=== PATIENT | female | born 1955 | race Hispanic/Latino ===

== ENCOUNTER 2019-01-01 08:49 | Inpatient (IN) | payer SELFPAY ==
[2019-01-01] MEDS ORDERED: Piperacillin/Tazobactam 3.375 GM VIAL ONE (09:54)
[2019-01-01] MEDS ORDERED: Sodium Chloride 0.9% 100 ML ONE (09:55)
[2019-01-01 10:09] LABS: Hemoglobin 8.6 g/dL (12.0-16.0); Mean Corpuscular HGB CONC 30.3 g/dL (32.0-36.0); Mean Corpuscular Hemoglobin 23.8 pg (27.0-31.0); Mean Corpuscular Volume 78.5 fL (78.0-98.0); Mean Platelet Volume 7.2 fL (7.4-10.4); Platelet Count 153 thou/uL (130-400); Red Blood Cell (RBC) Count 3.63 mill/uL (4.20-5.40); White Blood Cell (WBC) Count 6.1 thou/uL (4.8-10.8)
--- NOTE | 2019-01-01 10:15 | RAD ---
Exam: Chest one view: HISTORY: Dyspnea erythema pain swelling FINDINGS: Cardiomegaly with bilateral vascular congestion and probable mild interstitial edema. Right rib defor mities evidence for old fractures. Probable small pleural effusions. IMPRESSION: Evidence for congestive heart failure with cardiomegaly, vascular congestion, mild interstitial edema , and evidence for small pleural effusions.
[2019-01-01 10:20] LABS: ALT (SGPT) 17 U/L (8-55); AST (SGOT) 28 U/L (5-34); Albumin 3.3 g/dL (3.4-4.8); Alkaline Phosphatase 94 U/L (40-150); Anion Gap 12 mmol/L (10-20); BUN (Urea Nitrogen) 8 mg/dL (9.8-20.1); Bilirubin, Total 0.8 mg/dL (0.2-1.2); Calc. Creatinine Clearance 0 mL/min (70-130); Calcium 9.2 mg/dL (7.8-10.44); Carbon Dioxide 23 mmol/L (23-31); Chloride 106 mmol/L (98-107); Estimated GFR-MDRD 77; Globulin 4.6 g/dL (2.4-3.5); Glucose 92 mg/dL (80-115); Protein, Total 7.9 g/dL (6.0-8.3); Sodium 137 mmol/L (136-145)
[2019-01-01 10:29] LABS: #Basophils 0.1 thou/uL (0.0-0.2); #Eosinphils 0.1 thou/uL (0.0-0.7); #Lymphocytes 1.2 thou/uL (1.20-3.40); #Monocytes 0.6 thou/uL (0.11-0.59); #Neutrophils 4.1 thou/uL (1.40-6.50); %Basophils 1.2 % (0.0-1.0); %Eosinophils 1.9 % (0.0-10.0); %Lymphocytes 19.6 % (21.0-51.0); %Monocytes 9.4 % (0.0-10.0); %Neutrophils 67.9 % (42.0-75.0); Anisocytosis SLIGHT = 6-15 cells (100X) (0-5/hpf); Hypochromia SLIGHT = 6-15 cells (100X) (0-5/hpf); MDiff Complete? YES; Microcytosis SLIGHT = 6-15 cells (100X) (0-5/hpf); Platelet Morphology Comment Appears Adequate
--- NOTE | 2019-01-01 10:29 | ULT ---
RIGHT LOWER EXTREMITY VENOUS DOPPLER ULTRASOUND: DATE: 01/01/2019. COMPARISON: None. HISTORY: Edema, swelling, redness, and pain, assess for DVT. TECHNIQUE: Multiplanar tijerina scale sonographic imaging of the right lower extremity venous structures obtained wi th color flow and spectral analysis. FINDINGS: Right common femoral vein, greater saphenous vein, profunda femoral vein, femoral vein, popliteal, an d posterior tibial vein are patent. Normal blood flow, augmentation, and compression within the deep venous system with no evidence for DVT of the right lower extremity. There are edematous changes in volving the soft tissues in the region of the calf. IMPRESSION: No evidence for deep venous thrombosis of the right lower extremity. POS: OFF
[2019-01-01] MEDS ORDERED: Morphine 4 MG/ML VIAL ONE (10:33)
[2019-01-01] MEDS ORDERED: Vancomycin HCl 500 MG VIAL ONE (11:29)
[2019-01-01] MEDS ORDERED: Calcium Carbonate 500 MG ChewTAB PO PRN (14:59)
[2019-01-01] MEDS ORDERED: Acetaminophen 325 MG TAB PO PRN (14:59)
[2019-01-01] MEDS ORDERED: HYDROcodone/Acetaminophen 5/325 mg Tablet PO PRN (14:59)
[2019-01-01] MEDS ORDERED: Ondansetron PF 4 MG/2 ML Vial IVP PRN (14:59)
[2019-01-01] MEDS ORDERED: Bisacodyl 5 MG TAB PO PRN (14:59)
[2019-01-01] MEDS ORDERED: Senokot S 8.6-50 MG TAB PO PRN (14:59)
[2019-01-01] MEDS ORDERED: Ondansetron ODT 4 MG TAB PO PRN (14:59)
[2019-01-01] MEDS ORDERED: diphenhydrAMINE 25 MG CAP PO PRN (15:03)
[2019-01-01] MEDS ORDERED: hydrALAZINE 20 MG/ML VIAL SLOW IVP PRN (15:03)
[2019-01-01] MEDS ORDERED: Docusate 100 MG CAP PO PRN (15:03)
--- NOTE | 2019-01-01 15:33 | PDOC.HHP ---
Hospitalist HPI - History of Present Illness Right lower extremity redness, pain, and swelling History of Present Illness: 63 year old female with PMHx of CVA presents with worsening right lower extremity redness, swelling, and pain. Patient states that roughly 2 months ago she was stung by a scorpion here in town and has worsening symptoms ever since. Patient at time of initial sting did see a doctor who recommended washing the the wound with soap and water, then applying Neosporin to it. Patient 2 months later now with worsening redness, pain, swelling and warm to the right ankle and extending up the leg. Patient denies fever, chills, chest pain, abdominal pain, Nausea, vomiting, diarrhea, or any other symptoms at this time. Patient with PMHx of CVA takes no other medications aside from occasional Ibuprofen for pain. Patient denies diabetes, HTN, HLD, and takes no medications for past CVA. In addition to LE cellulits, patient also with pulmonary edema on CXR, though she denies shortness of breath, orthopnea, or any pulmonary complaints at this time. Patient admitted to medical unit with telemetry for further evaluation. Hospitalist ROS - Review of Systems Constitutional: denies: fever, chills, sweats, weakness Eyes: denies: pain ENT: denies: ear pain, throat pain, throat swelling Respiratory: denies: cough, dry, shortness of breath, hemoptysis, SOB with excertion, pleuritic pain, sputum, wheezing Cardiovascular: denies: chest pain, palpitations, orthopnea Gastrointestinal: denies: nausea, vomitting, abdominal pain Genitourinary: denies: dysuria, frequency, incontinence Musculoskeletal: denies: neck pain, back pain Skin: reports: rash, lesions Neurological: denies: weakness, numbness, incoordination, change in speech Hospitalist History - Past Medical History Cardiac: denies: AFIB, CAD, CHF, HTN, ND, Hyperlipidemia Pulmonary: reports: CVA/TIA/stroke. 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 denies: Seizure Gastrointestinal: denies: Diverticulosis, GERD, GI bleed, Inflam bowel disease Heme/Onc: denies: Cancer Hepatobiliary: reports: Cholelithiasis. denies: Cirrhosis, Hep A/B/C Psych: denies: Psychosis, Schizophrenia Rheumatologic: denies: Rheumatoid arthritis Infectious Disease: denies: HIV Renal/: denies: Chronic renal failure Endocrine: denies: Diabetes, Hyperthyroidism, Hypothyroidism - Past Surgical History Past Surgical History: denies: CABG, Cataract Removal - Family History Family History: reports: cerebrovascular accident, hypertension - Social History Smoking Status: Unknown if ever smoked Alcohol: reports: None Drugs: reports: none Living Situation: With Family Activity level: independent ambulation - Exam General Appearance: NAD, awake alert Eye: PERRL, anicteric sclera Eye - other findings: EOMI ENT: no oropharyngeal lesions, moist mucosa Neck: supple, symmetric, no JVD Heart: RRR, no gallops, no rubs Heart - other findings: Loud systolic cresendo de cresendo murmur appreciated Respiratory: CTAB, no wheezes, no ronchi, rales (Faint) Gastrointestinal: soft, non-tender, non-distended, normal bowel sounds, no palpable masses, no guarding, no rigidity Gastrointestinal - other findings: Obese Extremeties - other findings: Right LE +2 edema with cellulitis Skin: negative: no lesions (Cellulitis right leg from toes extending up the leg to the level of the knee. There is an effusion over the lateral malleolus distally extending into the foot. See wound care pictures for details.), no rashes Skin - other findings: Right leg cullulitis with small sub centemeter round crusted lesion Neurological: CN's grossly intact, normal sensation to touch, no focal deficits , no new deficit Musculoskeletal: normal strength, no muscle wasting Psychiatric: normal affect, A&O x 3 Hospitalist Results - Labs Result Diagrams: 01/01/19 09:45 01/01/19 09:45 Lab results: WBC 6.1 thou/uL (4.8-10.8) 01/01/19 09:45 Hgb 8.6 g/dL (12.0-16.0) L 01/01/19 09:45 Hct 28.5 % (36.0-47.0) L 01/01/19 09:45 MCV 78.5 fL (78.0-98.0) 01/01/19 09:45 Plt Count 153 thou/uL (130-400) 01/01/19 09:45 Neutrophils % 67.9 % (42.0-75.0) 01/01/19 09:45 Sodium 137 mmol/L (136-145) 01/01/19 09:45 Potassium 4.0 mmol/L (3.5-5.1) 01/01/19 09:45 Chloride 106 mmol/L (98-107) 01/01/19 09:45 Carbon Dioxide 23 mmol/L (23-31) 01/01/19 09:45 BUN 8 mg/dL (9.8-20.1) L 01/01/19 09:45 Creatinine 0.76 mg/dL (0.6-1.1) 01/01/19 09:45 Glucose 92 mg/dL (80-115) 01/01/19 09:45 Lactic Acid 1.2 mmol/L (0.5-2.2) 01/01/19 09:45 Calcium 9.2 mg/dL (7.8-10.44) 01/01/19 09:45 Total Bilirubin 0.8 mg/dL (0.2-1.2) 01/01/19 09:45 AST 28 U/L (5-34) 01/01/19 09:45 ALT 17 U/L (8-55) 01/01/19 09:45 Alkaline Phosphatase 94 U/L (40-150) 01/01/19 09:45 Creatine Kinase 469 U/L (29-168) H 01/01/19 09:45 Troponin I 0.020 ng/mL (< 0.028) 01/01/19 09:45 Serum Total Protein 7.9 g/dL (6.0-8.3) 01/01/19 09:45 Albumin 3.3 g/dL (3.4-4.8) L 01/01/19 09:45 - Radiology Interpretation US - venous Status: image reviewed by me Chest x-ray Status: image reviewed by tx Hospitalist H&P A/P - Problem (1) Cellulitis and abscess of foot Code(s): L03.119 - CELLULITIS OF UNSPECIFIED PART OF LIMB; L02.619 - CUTANEOUS ABSCESS OF UNSPECIFIED FOOT Status: Acute (2) Leg pain Status: Acute (3) Leg edema, right Code(s): R60.0 - LOCALIZED EDEMA Status: Acute (4) Fever Code(s): R50.9 - FEVER, UNSPECIFIED Status: Acute (5) Scorpion sting Code(s): T63.2X1A - TOXIC EFFECT OF VENOM OF SCORPION, ACCIDENTAL, INIT Status : Acute (6) Pulmonary edema Code(s): J81.1 - CHRONIC PULMONARY EDEMA Status: Acute (7) Pulmonary edema with congestive heart failure Code(s): I50.1 - LEFT VENTRICULAR FAILURE, UNSPECIFIED Status: Acute (8) CVA (cerebral vascular accident) Code(s): I63.9 - CEREBRAL INFARCTION, UNSPECIFIED Status: Resolved - Plan Plan: Plan: Admit to medical unit with telemetry Broad spectrum antibiotics Wound culture Blood culture De escalate to culture and sensitivity as able Wound care consult, eval and treat Consider ID consult if doesnt respond to broad spectrum ABX US LE neg for DVT and no suspicion for necrotizing fasciitis CT right LE to eval for drainable abscess/ obvious osteo CXR with pulmonary edema, loud audible systolic murmur Echocardiogram to quatify EF and evaluate for valvular pathology Will add Lasix IV 20mg Breathing well on room air, adequate O2 sat Consider cardiology consult/ cardiomyopathy regimen pending Echo Pain control Screening labs for DM, HLD, throid as patient doesnt regularly see a doctor GI and DVT PPX
[2019-01-01] MEDS: HYDROcodone/Acetaminophen 7.5/325 mg Tablet PO PRN (17:41)
[2019-01-01] MEDS: Piperacillin/Tazobactam 3.375 GM in Sodium Chloride 0.9% 100 ML IVPB SCH ×2 (17:41→23:24)
--- NOTE | 2019-01-01 17:55 | CT ---
CT RIGHT LOWER EXTREMITY WITHOUT IV CONTRAST: Date: 01/01/19 HISTORY: Right ankle cellulitis and swelling. FINDINGS: There is edema and inflammatory change in the subcutaneous fat of the right lower extremity. No defin ite loculated fluid collection is seen to suggest abscess formation. No cortical destruction or perio steal reaction is noted to suggest osteomyelitis. IMPRESSION: Right lower extremity cellulitis. POS: [facility]
[2019-01-01] MEDS: Famotidine 20 MG TAB PO SCH (20:09)
[2019-01-01] MEDS ORDERED: Vancomycin HCl 1 GM in Premix Bag 1 BAG IVPB SCH (21:00)
[2019-01-01] MEDS: Vancomycin HCl 1.5 GM in Sodium Chloride 0.9% 250 ML 300 ML IVPB SCH (23:24)
[2019-01-02 05:09] LABS: #Eosinphils 0.2 thou/uL (0.0-0.7); #Lymphocytes 1.2 thou/uL (1.20-3.40); #Monocytes 0.5 thou/uL (0.11-0.59); #Neutrophils 2.3 thou/uL (1.40-6.50); %Basophils 0.8 % (0.0-1.0); %Lymphocytes 28.4 % (21.0-51.0); %Monocytes 10.9 % (0.0-10.0); %Neutrophils 55.9 % (42.0-75.0); Mean Corpuscular HGB CONC 30.8 g/dL (32.0-36.0); Mean Corpuscular Hemoglobin 24.6 pg (27.0-31.0); Mean Corpuscular Volume 79.9 fL (78.0-98.0); Mean Platelet Volume 9.1 fL (7.4-10.4); Platelet Count 140 thou/uL (130-400); RBC Distribution Width 18.1 % (11.5-14.5); Red Blood Cell (RBC) Count 3.26 mill/uL (4.20-5.40); White Blood Cell (WBC) Count 4.1 thou/uL (4.8-10.8)
[2019-01-02] MEDS: Piperacillin/Tazobactam 3.375 GM in Sodium Chloride 0.9% 100 ML IVPB SCH ×4 (05:09→23:02)
[2019-01-02 05:12] LABS: Hemoglobin A1c 5.3 % (4.0-6.0)
[2019-01-02 05:31] LABS: Anion Gap 9 mmol/L (10-20); BUN (Urea Nitrogen) 11 mg/dL (9.8-20.1); Calc. Creatinine Clearance 103 mL/min (70-130); Calcium 8.4 mg/dL (7.8-10.44); Carbon Dioxide 23 mmol/L (23-31); Cardiac Risk 3.5 (Less than 4.5); Chloride 107 mmol/L (98-107); Cholesterol 76 mg/dl (< 200 Desired); Estimated GFR-MDRD 71; Glucose 83 mg/dL (80-115); HDL Cholesterol 22 mg/dL (>60 Neg Risk); LDL Cholesterol, Calculated 43 mg/dL; Sodium 135 mmol/L (136-145); Triglycerides 55 mg/dL (Less than 150)
[2019-01-02 05:43] LABS: Free T4 (Free Thyroxine) 1.04 ng/dL (0.70-1.48); Thyroid Stimulating Hormone 5.1035 uIU/mL (0.35-4.94)
[2019-01-02] MEDS: Furosemide 20 MG/2 ML VIAL SLOW IVP SCH (09:07)
[2019-01-02] MEDS: Famotidine 20 MG TAB PO SCH ×2 (09:07→19:44)
[2019-01-02] MEDS: Enoxaparin Sodium 40 MG/0.4 ML SYRINGE SC SCH (09:08)
[2019-01-02] MEDS: HYDROcodone/Acetaminophen 7.5/325 mg Tablet PO PRN (09:13)
[2019-01-02] MEDS: Vancomycin HCl 1.5 GM in Sodium Chloride 0.9% 250 ML 300 ML IVPB SCH ×2 (11:55→23:03)
[2019-01-02 12:41] VITALS: BMI 40.9
--- NOTE | 2019-01-02 13:30 | PDOC.HOSPP ---
- Subjective Subjective: Seen and examined. Cellulitis LE is significantly improved. Pain is less severe. Breathing better, still with some cough of whitish phlegm. No fever. Overall feeling better. No acute overnight events. - Objective Vital Signs & Weight: Vital Signs (12 hours) Temp Pulse Resp BP Pulse Ox 01/02/19 11:20 97.6 F 87 18 106/56 L 96 01/02/19 07:44 97 01/02/19 07:34 98.0 F 76 16 168/81 H 97 01/02/19 04:00 98.2 F 84 20 93/55 L 94 L Weight Admit Weight 201 lb 1.6 oz Weight 202 lb 12.8 oz I&O: 01/01/19 01/02/19 01/03/19 06:59 06:59 06:59 Intake Total 860 Output Total 800 Balance 60 Result Diagrams: 01/02/19 04:47 01/02/19 04:47 Radiology Reviewed by me: Yes (CT ankle) Hospitalist ROS - Review of Systems All other systems reviewed; all pertinent +/- noted in HPI/Subj - Medication Medications: Active Medications Generic Name Dose Route Start Last Admin Trade Name Freq PRN Reason Stop Dose Admin Hydrocodone Bitart/Acetaminophen 1 tab 01/01/19 14:59 01/02/19 09:13 [place] 7.5/325 PO 1 tab Q4H PRN Administration Severe Pain (7-10) Enoxaparin Sodium 40 mg 01/02/19 09:00 01/02/19 09:08 Lovenox SC 40 mg 0900 GREG Administration Famotidine 20 mg 01/01/19 21:00 01/02/19 09:07 Pepcid PO 20 mg BID GREG Administration Furosemide 20 mg 01/02/19 09:00 01/02/19 09:07 Lasix SLOW IVP 20 mg DAILY GREG Administration Piperacillin Sod/Tazobactam 100 mls @ 200 mls/hr 01/01/19 18:00 01/02/19 11: 20 Sod 3.375 gm/ Sodium Chloride IVPB 100 mls Q6HR GREG Administration Vancomycin HCl 1.5 gm/ Sodium 300 mls @ 200 mls/hr 01/01/19 23:59 01/02/19 11 :55 Chloride IVPB 300 mls 1200,2359 GREG Administration - Exam General Appearance: NAD, awake alert Eye: PERRL, anicteric sclera Eye - other findings: EOMI ENT: normocephalic atraumatic, no oropharyngeal lesions, moist mucosa Neck: supple, symmetric, no lymphadenopathy Heart: RRR, no gallops, no rubs Heart - other findings: Murmur is less evident right upper sternal border Gastrointestinal: soft, non-tender, non-distended, normal bowel sounds, no palpable masses, no guarding, no rigidity Extremities: 2+ LE edema Extremeties - other findings: Improved LE edema and cellulitis, though still with some redness and warmth Skin: negative: no lesions, no rashes Skin - other findings: Small roughly 1 cm suppercicial scabbed lesion on right leg, lateral mal Neurological: CN's grossly intact, normal sensation to touch, no weakness, no focal deficits Musculoskeletal: normal strength Psychiatric: normal affect, A&O x 3 Hosp A/P (1) Cellulitis and abscess of foot Code(s): L03.119 - CELLULITIS OF UNSPECIFIED PART OF LIMB; L02.619 - CUTANEOUS ABSCESS OF UNSPECIFIED FOOT Status: Acute (2) Leg pain Status: Acute (3) Leg edema, right Code(s): R60.0 - LOCALIZED EDEMA Status: Acute (4) Fever Code(s): R50.9 - FEVER, UNSPECIFIED Status: Acute (5) Scorpion sting Code(s): T63.2X1A - TOXIC EFFECT OF VENOM OF SCORPION, ACCIDENTAL, INIT Status : Acute (6) Pulmonary edema Code(s): J81.1 - CHRONIC PULMONARY EDEMA Status: Acute (7) Pulmonary edema with congestive heart failure Code(s): I50.1 - LEFT VENTRICULAR FAILURE, UNSPECIFIED Status: Acute (8) CVA (cerebral vascular accident) Code(s): I63.9 - CEREBRAL INFARCTION, UNSPECIFIED Status: Resolved - Plan Plan: Med/ tel Responding to broad spectrum ABX Wound Cx, s. aureus - sensitivity pending Blood Cx - No growth to date Urine Cx - No growth to date Wound care consult, recommendations appreciated US LE neg for DVT/ necrotizing fasciitis CT Ankle negative for drainable abscess or osteomyelitis CXR with pulm edema, breathing better on room air PRN medications for cough Echo pending IV Lasix Consider cardiology consult/ cardiomyopathy regimen pending echo Pain control Lipid panel not significantly abnormal, though with prior CVA should be on statin for prevention A1c normal at 5.3 Thyroid normal GI and DVT PPX
[2019-01-03 00:13] LABS: Vancomycin, Trough 22.7 ug/mL
[2019-01-03] MEDS: Piperacillin/Tazobactam 3.375 GM in Sodium Chloride 0.9% 100 ML IVPB SCH ×2 (05:04→12:32)
[2019-01-03 05:47] LABS: #Eosinphils 0.2 thou/uL (0.0-0.7); #Lymphocytes 1.4 thou/uL (1.20-3.40); #Monocytes 0.6 thou/uL (0.11-0.59); #Neutrophils 2.8 thou/uL (1.40-6.50); %Basophils 0.9 % (0.0-1.0); %Eosinophils 4.7 % (0.0-10.0); %Lymphocytes 28.2 % (21.0-51.0); %Monocytes 12.3 % (0.0-10.0); Hemoglobin 7.9 g/dL (12.0-16.0); Mean Corpuscular HGB CONC 30.7 g/dL (32.0-36.0); Mean Corpuscular Hemoglobin 24.3 pg (27.0-31.0); Mean Corpuscular Volume 79.3 fL (78.0-98.0); Mean Platelet Volume 8.7 fL (7.4-10.4); Platelet Count 154 thou/uL (130-400); RBC Distribution Width 18.3 % (11.5-14.5); Red Blood Cell (RBC) Count 3.26 mill/uL (4.20-5.40); White Blood Cell (WBC) Count 5.1 thou/uL (4.8-10.8)
[2019-01-03 06:11] LABS: Anion Gap 10 mmol/L (10-20); BUN (Urea Nitrogen) 12 mg/dL (9.8-20.1); Calc. Creatinine Clearance 100 mL/min (70-130); Calcium 8.2 mg/dL (7.8-10.44); Carbon Dioxide 23 mmol/L (23-31); Chloride 105 mmol/L (98-107); Estimated GFR-MDRD 69; Glucose 89 mg/dL (80-115); Potassium 3.8 mmol/L (3.5-5.1); Sodium 134 mmol/L (136-145)
--- NOTE | 2019-01-03 09:42 | RAD ---
EXAM: Chest 2 views: HISTORY: Shortness of breath COMPARISON: 01/01/2019 FINDINGS: There is an enlarged but stable cardiomediastinal silhouette. There is no evidence of consolidation, mass, or pleural effusion. The bones are unremarkable. IMPRESSION: Cardiomegaly without evidence of acute cardiopulmonary disease
[2019-01-03] MEDS: Enoxaparin Sodium 40 MG/0.4 ML SYRINGE SC SCH (09:50)
[2019-01-03] MEDS: Furosemide 20 MG/2 ML VIAL SLOW IVP SCH (09:50)
[2019-01-03] MEDS: Famotidine 20 MG TAB PO SCH ×2 (09:50→21:37)
[2019-01-03 11:31] LABS: Vancomycin, Trough 25.7 ug/mL
[2019-01-03] MEDS ORDERED: Vancomycin HCl 1 GM in Premix Bag 1 BAG IVPB SCH (12:00)
[2019-01-03] MEDS: HYDROcodone/Acetaminophen 7.5/325 mg Tablet PO PRN (15:57)
[2019-01-03] MEDS: Metoprolol Tartrate 25 MG TAB PO SCH (21:37)
[2019-01-03] MEDS: Doxycycline 100 MG CAP PO SCH (21:37)
--- NOTE | 2019-01-04 05:25 | DIS ---
DATE OF ADMISSION: 01/01/2019 DATE OF DISCHARGE: 01/03/2019 REASON FOR HOSPITALIZATION: Right lower extremity redness, pain, and swelling. SIGNIFICANT FINDINGS: The patient was found to have right lower extremity cellulitis status post scorpion sting two months ago. The patient found to have community acquired MRSA growing in the wound. The patient also found to have pulmonary edema, echocardiogram confirmed that the patient having acute diastolic congestive heart failure exacerbation. PROCEDURES PERFORMED/TREATMENTS RENDERED: The patient with acute cellulitis was placed on broad-spectrum IV antibiotics. The patient had a wound culture, which confirmed the presence of methicillin-resistant Staphylococcus aureus, however, it is sensitive to oral medications consistent with community-acquired MRSA. The patient was safely transitioned to oral antibiotics as she has a normal WBC count, afebrile, and cellulitis is resolving. The patient had a CT scan of the right lower extremity, please see full report for details. There is no drainable abscess or osteomyelitis of the ankle. The patient had an echocardiogram, please see full report for details, patient found to have acute diastolic heart failure and was placed on initially IV Lasix therapy and transitioned to oral medications. CONDITION ON DISCHARGE: Stable. SPECIFIC INSTRUCTIONS FOR THE PATIENT/FAMILY: 1. The patient is recommended to take all medications as directed, to be re-evaluated by primary care physician in the outpatient clinic in the next 5 to 7 days. 2. The patient is recommended to follow up with primary care physician in the next 5 to 7 days. 3. The patient is recommended to follow up with Cardiology in the outpatient clinic in the next 2 to 4 weeks. 4. The patient is recommended to return to acute care hospital immediately if signs or symptoms return, worsen, or any other new symptoms occur. HOSPITAL COURSE: Ms. Chowdary is a very pleasant 63-year-old female with no known past medical history, who presents to [facility] on 01/01/2019, with right lower extremity redness, pain, and swelling. The patient was diagnosed to have cellulitis of the right lower extremity. Per history, the patient was bit by a scorpion two months ago and the area has not completely healed since then. The patient had a CT scan of the right lower extremity, please see full report for details. There was no drainable abscess or osteomyelitis seen on CT scan. The patient initially placed on IV antibiotics and wound culture was obtained. Wound culture did confirm the presence of community-acquired methicillin-resistant Staphylococcus aureus that is sensitive to oral antibiotics. The patient was safely transitioned to oral antibiotics as her WBC count is normal and she is afebrile. The patient's cellulitis resolving. The patient with mild shortness of breath on admission and chest x-ray suggestive of pulmonary congestion. Concerns for congestive heart failure were addressed and the patient had an echocardiogram. The patient with preserved ejection fraction of 60% and normal wall motion. The patient does have evidence of diastolic dysfunction and she was diagnosed with acute diastolic heart failure with exacerbation. The patient was placed on a heart failure regimen and recommended to avoid volume overload and excess salt intake. The patient recommended safe for discharge home with close followup in the outpatient setting. The patient is recommended to take all medications, efforts were made to send the patient's medications to a pharmacy in which she could be provided medications at low/no cost. transition manager consultation was requested to ensure compliance of the patient with medical regimen and follow up with primary care physician. The patient is recommended to follow up with primary care physician in the next 5 to 7 days. The patient is recommended to follow up with Cardiology in the next 2 to 4 weeks. The patient is recommended to return to acute care hospital immediately if signs or symptoms return, worsen, or any other new symptoms occur. Greater than 39 minutes spent coordinating care and discharge planning. Job ID: [id number] [id number]
[2019-01-04 08:52] VITALS: BP 129/69; TEMP 98.1
[2019-01-04] MEDS: Doxycycline 100 MG CAP PO SCH (08:53)
[2019-01-04] MEDS: Famotidine 20 MG TAB PO SCH (08:54)
[2019-01-04] MEDS: Metoprolol Tartrate 25 MG TAB PO SCH (08:54)
[2019-01-04] MEDS: Enoxaparin Sodium 40 MG/0.4 ML SYRINGE SC SCH (08:55)
[2019-01-04] MEDS ORDERED: Furosemide 20 MG TAB PO SCH (09:00)
[2019-01-04] MEDS ORDERED: Lisinopril 2.5 MG TAB PO SCH (09:00)
== END 2019-01-04 11:59 | disposition home or self-care (01) | DRG 602 ==
LOC: SCSER 08:49 → SCSERHOLD 11:51 → 2NO 14:47
PROVIDERS: ADMIT Internal Medicine; ATTEND Internal Medicine
DX: L03.115 Cellulitis of right lower limb (principal); I50.33 Acute on chronic diastolic (congestive) heart failure; L02.611 Cutaneous abscess of right foot; B95.62 Methicillin resistant Staphylococcus aureus infection as the cause of diseases classified elsewhere; D64.9 Anemia, unspecified; Z86.73 Personal history of transient ischemic attack (TIA), and cerebral infarction without residual deficits
CPT/HCPCS: 36415; 71045; 71046; 80048; 80053; 80061; 80202; 82550; 83036; 83605; 84439; 84443; 84481; 84484; 85025; 86140; 87040; 87070; 87077; 87086; 87186; 87205; 90471; 90732; 93005; 93306; 93798; 96365; 96366; 96367; 96375; G0009; J1650; J1940; J2270; J2543; J3370; J3490; J7050

== ENCOUNTER 2020-05-11 05:18 | Inpatient (IN) | payer SELFPAY ==
[2020-05-11] MEDS ORDERED: levETIRAcetam in NS 100 ML ONE (05:21)
[2020-05-11] MEDS ORDERED: fentaNYL Citrate/PF 2,000 MCG in Sodium Chloride 0.9% 60 ML IV SCH (05:45)
[2020-05-11] MEDS ORDERED: Norepinephrine 8 MG/0.9% NS 250 ML ONE (06:02)
[2020-05-11 06:42] LABS: Actual Bicarbonate (HCO3a) 19.2 mEq/L (22-28); Analyzer IN Cardio ER; Base Excess (BEa) -4.4 mEq/L (-2.0 to +3.0); Calcium, Ionized (arterial) 1.03 mmol/L (1.12-1.30); Carboxyhemoglobin (COHb) 0.2 gm% (0.0-3.0); O2 Tension (PaO2), arterial 447.2 mmHg (> 80.0); Potassium - ABG Lab 3.18 mmol/L (3.70-5.30); pH, Arterial 7.43 (7.35-7.45)
[2020-05-11 06:43] LABS: Puncture Site LRA
[2020-05-11] MEDS ORDERED: EPINEPHrine 1 MG/10 ML Abboject SYRINGE ONE ×3 (06:43→13:10)
[2020-05-11 06:51] LABS: ALT (SGPT) 28 U/L (8-55); AST (SGOT) 127 U/L (5-34); Albumin 1.5 g/dL (3.4-4.8); Alkaline Phosphatase 54 U/L (40-110); Anion Gap 15 mmol/L (10-20); BUN (Urea Nitrogen) 29 mg/dL (9.8-20.1); Bilirubin, Total 3.9 mg/dL (0.2-1.2); Calc. Creatinine Clearance 0 mL/min (70-130); Calcium 7.3 mg/dL (7.8-10.44); Carbon Dioxide 23 mmol/L (23-31); Chloride 101 mmol/L (98-107); Globulin 3.6 g/dL (2.4-3.5); Glucose 256 mg/dL (80-115); Potassium 4.4 mmol/L (3.5-5.1); Protein, Total 5.1 g/dL (6.0-8.3); Sodium 135 mmol/L (136-145)
[2020-05-11 06:58] LABS: Band 21 % (5-11); Hemoglobin 9.4 g/dL (12.0-16.0); Lymphocytes 14 % (21-51); MDiff Complete? YES; Macrocytosis SLIGHT = 6-15 cells (100X) (0-5/hpf); Mean Corpuscular HGB CONC 31.2 g/dL (32.0-36.0); Mean Corpuscular Hemoglobin 32.9 pg (27.0-31.0); Metamyelocyte 1 % (0-0); Monocytes 17 % (0-10); Neutrophil 47 % (42-75); Platelet Count 36 thou/uL (130-400); Platelet Morphology Comment Appears Decreased; RBC Distribution Width 21.5 % (11.5-14.5); Red Blood Cell (RBC) Count 2.85 mill/uL (4.20-5.40); Target Cells MODERATE= 6-15 cells (100X) (0-1/hpf); White Blood Cell (WBC) Count 8.7 thou/uL (4.8-10.8)
[2020-05-11] MEDS ORDERED: Aspirin 300 MG Suppository ONE (06:59)
[2020-05-11] MEDS ORDERED: EPINEPHrine 4 MG in Dextrose 5% in Water 250 ML IV SCH (07:00)
[2020-05-11 07:23] LABS: CKMB 9.2 ng/mL (0-6.6)
[2020-05-11] MEDS ORDERED: Vancomycin 1 GM/200 ML BAG ONE (07:25)
[2020-05-11] MEDS ORDERED: Cefepime 2 GM VIAL ONE (07:25)
[2020-05-11 07:33] LABS: Bacteria/HPF 4+ HPF (None Seen); Bilirubin 1+ (Negative); Blood, Urine 2+ (Negative); Clarity Extra Turbid (Clear); Glucose, Urine (Dipstick) 100 mg/dL (Negative); Ketone, Urine Negative (Negative); Leukocyte 250 Leu/uL (Negative); Nitrite 1+ (Negative); Protein, Urine (Dipstick) 200 mg/dL (Neg-Trace); Specific Gravity, Urine 1.017 (1.002-1.036); Squamous Epithelial 21-50 HPF (0-3); Urobilinogen Normal mg/dL (Less than 2); WBC/HPF 21-50 HPF (0-3)
[2020-05-11 07:58] LABS: SARS-CoV-2 NAA Rapid Test Not Detected (NotDetected)
[2020-05-11] MEDS ORDERED: Acetaminophen 650 MG Suppository PR PRN (09:14)
[2020-05-11 09:16] VITALS: BMI 43.7
[2020-05-11] MEDS ORDERED: Dextrose 5% in Water 1,000 ML IV PRN (09:17)
[2020-05-11] MEDS ORDERED: Insulin Regular 300 UNITS/3 ML VIAL SC PRN (09:17)
[2020-05-11] MEDS ORDERED: Dextrose 50% Abboject 50 ML SYRINGE SLOW IVP PRN (09:17)
[2020-05-11] MEDS ORDERED: Vancomycin HCl 1 GM in Sodium Chloride 0.9% 250 ML 250 ML IVPB SCH (09:30)
[2020-05-11] MEDS ORDERED: Vancomycin 1 GM in Premix Bag 1 BAG IVPB SCH (09:45)
[2020-05-11 10:12] LABS: Hemoglobin A1c 4.6 % (4.0-6.0)
[2020-05-11 10:20] LABS: Cholesterol 49 mg/dl (< 200 Desired); HDL Cholesterol Less than 8 mg/dL (>60 Neg Risk); Triglycerides 89 mg/dL (Less than 150)
[2020-05-11 11:00] LABS: CKMB 9.7 ng/mL (0-6.6)
[2020-05-11] MEDS ORDERED: FLU VACC QS2020-21(6MOS UP)/PF 60 MCG/0.5 ML SYRINGE IM ONE (11:00)
[2020-05-11] MEDS ORDERED: Piperacillin/Tazobactam 3.375 GM VIAL ONE (11:01)
[2020-05-11] MEDS: Piperacillin/Tazobactam 3.375 GM in Sodium Chloride 0.9% 100 ML IVPB SCH ×2 (11:10→21:03)
[2020-05-11 11:11] LABS: Lactic Acid 3.5 mmol/L (0.5-2.2)
[2020-05-11] MEDS ORDERED: Sodium Bicarb 50 MEQ/50 ML Abboject 8.4% SYRINGE ONE (13:10)
[2020-05-11] MEDS ORDERED: Dextrose 50% Abboject 50 ML SYRINGE ONE (13:10)
[2020-05-11] MEDS ORDERED: Lorazepam 2 MG/ML VIAL SLOW IVP PRN (13:38)
[2020-05-11] MEDS: Multivitamins, Adult 10 ML, Thiamine HCl 100 MG, Folic Acid 1 MG in Dextrose 5 %-0.45 %... IV SCH (14:00)
[2020-05-11] MEDS ORDERED: Norepinephrine 4 MG/4 ML VIAL ONE (14:39)
[2020-05-11 15:04] LABS: Vitamin D, 25 Hydroxy 13.3 ng/ml (> 30.0)
[2020-05-11 15:10] LABS: Free T4 (Free Thyroxine) 0.79 ng/dL (0.70-1.48)
[2020-05-11] MEDS ORDERED: Norepinephrine 8 MG in Dextrose 5% in Water 242 ML IVPB PRN (17:15)
[2020-05-11 17:25] LABS: CKMB 8.6 ng/mL (0-6.6); Critical Call CKMB RESULT DECREASING
[2020-05-11] MEDS: Pantoprazole 40 MG VIAL IVP SCH (20:21)
[2020-05-11] MEDS ORDERED: Famotidine/PF 20 mg/2ml Vial SLOW IVP SCH (21:00)
[2020-05-12] MEDS ORDERED: Albumin 25% 25 GM/100 ML BOT IVPB SCH (02:00)
[2020-05-12 02:31] LABS: INR-International Normal Ratio 2.6; PTT 48.1 sec (22.9-36.1)
[2020-05-12 02:36] LABS: Lactic Acid 2.6 mmol/L (0.5-2.2)
[2020-05-12 02:46] LABS: SARS-CoV-2 MS2 Positive; SARS-CoV-2 N Gene Negative; SARS-CoV-2 S Gene Negative; SARS-CoV-2 by NAA Not Detected (NotDetected); SARS-CoV-2 orf1ab Negative
[2020-05-12 03:00] LABS: ALT (SGPT) 35 U/L (8-55); AST (SGOT) 160 U/L (5-34); Albumin 1.6 g/dL (3.4-4.8); Alkaline Phosphatase 66 U/L (40-110); Anion Gap 12 mmol/L (10-20); BUN (Urea Nitrogen) 40 mg/dL (9.8-20.1); Bilirubin, Total 7.5 mg/dL (0.2-1.2); Calc. Creatinine Clearance 37 mL/min (70-130); Calcium 7.1 mg/dL (7.8-10.44); Carbon Dioxide 22 mmol/L (23-31); Chloride 104 mmol/L (98-107); Glucose 151 mg/dL (80-115); Potassium 3.6 mmol/L (3.5-5.1); Protein, Total 5.6 g/dL (6.0-8.3); Sodium 134 mmol/L (136-145)
[2020-05-12] MEDS: Sodium Chloride 0.9% 1,000 ML IV SCH ×2 (05:28→18:31)
[2020-05-12] MEDS: Levothyroxine Sodium 50 MCG TAB PO SCH (05:28)
[2020-05-12] MEDS: Norepinephrine 8 MG/0.9% NS 8 MG in Premix Bag 1 BAG IVPB PRN ×4 (06:26→23:05)
[2020-05-12 07:29] LABS: Hemoglobin 9.1 g/dL (12.0-16.0); Mean Corpuscular HGB CONC 31.1 g/dL (32.0-36.0); Mean Corpuscular Hemoglobin 31.9 pg (27.0-31.0); Red Blood Cell (RBC) Count 2.86 mill/uL (4.20-5.40); White Blood Cell (WBC) Count 18.2 thou/uL (4.8-10.8)
[2020-05-12 07:31] LABS: Mean Platelet Volume 13.3 fL (7.4-10.4); Platelet Count 42 thou/uL (130-400)
[2020-05-12 08:22] LABS: Band 44 % (5-11); Dohle Bodies SLIGHT; Lymphocytes 4 % (21-51); MDiff Complete? YES; Metamyelocyte 1 % (0-0); Monocytes 13 % (0-10); Neutrophil 38 % (42-75); Platelet Morphology Comment Appears Decreased; Polychromasia SLIGHT = 2-3 cells (100X) (0-2/hpf); Reflex for Review?? NO; Target Cells SLIGHT = 2-5 cells (100X) (0-1/hpf); Toxic Granulation MODERATE; Vacuoles MODERATE
[2020-05-12] MEDS ORDERED: Enoxaparin Sodium 40 MG/0.4 ML SYRINGE SC SCH (09:00)
[2020-05-12] MEDS: Pantoprazole 40 MG VIAL IVP SCH ×2 (10:15→20:12)
[2020-05-12] MEDS: Piperacillin/Tazobactam 3.375 GM in Sodium Chloride 0.9% 100 ML IVPB SCH ×2 (10:16→21:59)
[2020-05-12] MEDS: Acetaminophen 325 MG TAB PO PRN (10:28)
[2020-05-12] MEDS: Multivitamins, Adult 10 ML, Thiamine HCl 100 MG, Folic Acid 1 MG in Dextrose 5 %-0.45 %... IV SCH (14:16)
[2020-05-13] MEDS: Propofol 1,000 MG/100 ML VIAL IV PRN ×2 (02:09→16:02)
[2020-05-13] MEDS ORDERED: Morphine 2 MG/ML VIAL SLOW IVP PRN (02:15)
[2020-05-13] MEDS ORDERED: Fentanyl BOLUS 250 ML IVPB PRN (02:15)
[2020-05-13] MEDS ORDERED: Lorazepam 2 MG/ML VIAL SLOW IVP PRN (02:15)
[2020-05-13] MEDS ORDERED: DISCONTINUE PREVIOUS NARCOTIC PAIN MEDICATIONS AND BENZODIAZEPINES FS SCH (02:15)
[2020-05-13] MEDS ORDERED: Propofol BOLUS 1,000 MG/100 ML VIAL IV PRN (02:15)
[2020-05-13] MEDS ORDERED: Fentanyl CADD 100 ML IV SCH (02:15)
[2020-05-13] MEDS: Levothyroxine Sodium 50 MCG TAB PO SCH (05:13)
[2020-05-13] MEDS: Norepinephrine 8 MG/0.9% NS 8 MG in Premix Bag 1 BAG IVPB PRN ×2 (05:13→14:24)
[2020-05-13 05:18] LABS: ALT (SGPT) 34 U/L (8-55); AST (SGOT) 156 U/L (5-34); Albumin 1.8 g/dL (3.4-4.8); Alkaline Phosphatase 100 U/L (40-110); Anion Gap 9 mmol/L (10-20); BUN (Urea Nitrogen) 40 mg/dL (9.8-20.1); Bilirubin, Total 10.8 mg/dL (0.2-1.2); Calc. Creatinine Clearance 43 mL/min (70-130); Calcium 6.9 mg/dL (7.8-10.44); Carbon Dioxide 22 mmol/L (23-31); Chloride 108 mmol/L (98-107); Globulin 3.8 g/dL (2.4-3.5); Glucose 130 mg/dL (80-115); Potassium 3.2 mmol/L (3.5-5.1); Protein, Total 5.6 g/dL (6.0-8.3); Sodium 136 mmol/L (136-145)
[2020-05-13 05:22] LABS: Band 16 % (5-11); Hemoglobin 7.7 g/dL (12.0-16.0); Hypochromia SLIGHT = 6-15 cells (100X) (0-5/hpf); Lymphocytes 10 % (21-51); MDiff Complete? YES; Macrocytosis SLIGHT = 6-15 cells (100X) (0-5/hpf); Mean Corpuscular Hemoglobin 32.5 pg (27.0-31.0); Mean Platelet Volume 12.4 fL (7.4-10.4); Monocytes 12 % (0-10); Neutrophil 62 % (42-75); Platelet Count 47 thou/uL (130-400); Platelet Morphology Comment Appears Decreased; RBC Distribution Width 22.1 % (11.5-14.5); Red Blood Cell (RBC) Count 2.38 mill/uL (4.20-5.40)
[2020-05-13] MEDS ORDERED: Electrolyte Replacement Protocol 1 EACH FS PRN (08:22)
[2020-05-13] MEDS: Sodium Chloride 0.9% 1,000 ML IV SCH ×2 (09:53→21:21)
[2020-05-13] MEDS: Midodrine HCl 5 MG TAB PER TUBE SCH ×3 (09:54→21:11)
[2020-05-13] MEDS: Pantoprazole 40 MG VIAL IVP SCH ×2 (09:54→21:11)
[2020-05-13] MEDS: Piperacillin/Tazobactam 3.375 GM in Sodium Chloride 0.9% 100 ML IVPB SCH ×2 (09:59→21:18)
[2020-05-13] MEDS ORDERED: Potassium Chloride 40 MEQ in Sodium Chloride 0.9% 250 ML 250 ML IVPB SCH (10:00)
[2020-05-13] MEDS: Multivitamins, Adult 10 ML, Thiamine HCl 100 MG, Folic Acid 1 MG in Dextrose 5 %-0.45 %... IV SCH (14:27)
[2020-05-14] MEDS: Propofol 1,000 MG/100 ML VIAL IV PRN ×2 (02:12→23:00)
[2020-05-14] MEDS: Norepinephrine 8 MG/0.9% NS 8 MG in Premix Bag 1 BAG IVPB PRN ×2 (04:53→17:50)
[2020-05-14] MEDS: Levothyroxine Sodium 50 MCG TAB PO SCH (05:02)
[2020-05-14 05:42] LABS: ALT (SGPT) 35 U/L (8-55); AST (SGOT) 158 U/L (5-34); Albumin 1.7 g/dL (3.4-4.8); Alkaline Phosphatase 99 U/L (40-110); Anion Gap 11 mmol/L (10-20); BUN (Urea Nitrogen) 38 mg/dL (9.8-20.1); Bilirubin, Total 12.4 mg/dL (0.2-1.2); Calc. Creatinine Clearance 52 mL/min (70-130); Calcium 6.7 mg/dL (7.8-10.44); Carbon Dioxide 22 mmol/L (23-31); Chloride 110 mmol/L (98-107); Globulin 3.9 g/dL (2.4-3.5); Glucose 113 mg/dL (80-115); Potassium 3.5 mmol/L (3.5-5.1); Protein, Total 5.6 g/dL (6.0-8.3); Sodium 139 mmol/L (136-145)
[2020-05-14 09:05] LABS: Mean Corpuscular HGB CONC 32.3 g/dL (32.0-36.0); Mean Corpuscular Hemoglobin 33.1 pg (27.0-31.0); RBC Distribution Width 22.5 % (11.5-14.5); Red Blood Cell (RBC) Count 2.43 mill/uL (4.20-5.40)
[2020-05-14] MEDS ORDERED: Potassium Chloride 40 MEQ in Sodium Chloride 0.9% 250 ML 250 ML IVPB SCH (09:15)
[2020-05-14] MEDS: Piperacillin/Tazobactam 3.375 GM in Sodium Chloride 0.9% 100 ML IVPB SCH ×2 (09:31→21:00)
[2020-05-14] MEDS: Thiamine 100 MG TAB PER TUBE SCH (09:31)
[2020-05-14] MEDS: Midodrine HCl 5 MG TAB PER TUBE SCH ×3 (09:31→19:59)
[2020-05-14] MEDS: Pantoprazole 40 MG VIAL IVP SCH ×2 (09:32→19:59)
[2020-05-14 09:49] LABS: Band 13 % (5-11); Lymphocytes 6 % (21-51); MDiff Complete? YES; Monocytes 9 % (0-10); Neutrophil 72 % (42-75); Platelet Count 47 thou/uL (130-400); Platelet Morphology Comment Appears Decreased; Polychromasia MODERATE = 3-4 cells (100X) (0-2/hpf); Schistocytes SLIGHT = 2-5 cells (100X) (0-1/hpf); Target Cells MODERATE= 6-15 cells (100X) (0-1/hpf); White Blood Cell (WBC) Count 22.3 thou/uL (4.8-10.8)
[2020-05-14] MEDS: Sodium Chloride 0.9% 1,000 ML IV SCH (16:20)
[2020-05-14] MEDS: Acetaminophen 325 MG TAB PO PRN ×2 (16:31→21:00)
[2020-05-14] MEDS ORDERED: Dextrose 5% in Water 1,000 ML IV PRN (21:03)
[2020-05-15] MEDS: Norepinephrine 8 MG/0.9% NS 8 MG in Premix Bag 1 BAG IVPB PRN ×2 (04:44→19:15)
[2020-05-15 04:52] LABS: ALT (SGPT) 42 U/L (8-55); AST (SGOT) 205 U/L (5-34); Albumin 1.6 g/dL (3.4-4.8); Alkaline Phosphatase 122 U/L (40-110); Anion Gap 11 mmol/L (10-20); BUN (Urea Nitrogen) 37 mg/dL (9.8-20.1); Bilirubin, Total 14.5 mg/dL (0.2-1.2); Calc. Creatinine Clearance 58 mL/min (70-130); Calcium 6.5 mg/dL (7.8-10.44); Carbon Dioxide 20 mmol/L (23-31); Chloride 113 mmol/L (98-107); Globulin 4.1 g/dL (2.4-3.5); Glucose 92 mg/dL (80-115); Potassium 4.1 mmol/L (3.5-5.1); Protein, Total 5.7 g/dL (6.0-8.3); Sodium 140 mmol/L (136-145)
[2020-05-15] MEDS: Levothyroxine Sodium 50 MCG TAB PO SCH (05:06)
[2020-05-15 05:18] LABS: Band 5 % (5-11); Hemoglobin 7.9 g/dL (12.0-16.0); Hypochromia SLIGHT = 6-15 cells (100X) (0-5/hpf); Lymphocytes 16 % (21-51); MDiff Complete? YES; Macrocytosis SLIGHT = 6-15 cells (100X) (0-5/hpf); Mean Corpuscular HGB CONC 31.9 g/dL (32.0-36.0); Mean Corpuscular Hemoglobin 32.7 pg (27.0-31.0); Mean Platelet Volume 11.5 fL (7.4-10.4); Monocytes 9 % (0-10); Neutrophil 70 % (42-75); Platelet Count 70 thou/uL (130-400); Platelet Morphology Comment Appears Decreased; RBC Distribution Width 24.6 % (11.5-14.5); Red Blood Cell (RBC) Count 2.43 mill/uL (4.20-5.40); White Blood Cell (WBC) Count 21.7 thou/uL (4.8-10.8)
[2020-05-15] MEDS: Sodium Chloride 0.9% 1,000 ML IV SCH ×2 (05:28→19:14)
[2020-05-15] MEDS: Propofol 1,000 MG/100 ML VIAL IV PRN ×2 (05:56→15:01)
[2020-05-15] MEDS ORDERED: VANCOMYCIN IVPB PRN (07:47)
[2020-05-15] MEDS: Vancomycin 1.5 GRAM/300 ML BAG 1.5 GM in Premix Bag 1 BAG IVPB SCH (09:12)
[2020-05-15] MEDS: Pantoprazole 40 MG VIAL IVP SCH ×2 (09:12→20:12)
[2020-05-15] MEDS: Thiamine 100 MG TAB PER TUBE SCH (09:12)
[2020-05-15] MEDS: Midodrine HCl 5 MG TAB PER TUBE SCH ×3 (09:20→20:12)
[2020-05-15] MEDS: Piperacillin/Tazobactam 3.375 GM in Sodium Chloride 0.9% 100 ML IVPB SCH ×2 (10:10→22:57)
[2020-05-16] MEDS: Propofol 1,000 MG/100 ML VIAL IV PRN ×2 (00:09→16:15)
[2020-05-16] MEDS: Scopolamine 1.5 mg/72 hour Patch TOP SCH (02:34)
[2020-05-16 05:27] LABS: ALT (SGPT) 50 U/L (8-55); AST (SGOT) 232 U/L (5-34); Albumin 1.5 g/dL (3.4-4.8); Alkaline Phosphatase 185 U/L (40-110); Anion Gap 12 mmol/L (10-20); BUN (Urea Nitrogen) 41 mg/dL (9.8-20.1); Bilirubin, Total 16.6 mg/dL (0.2-1.2); Calc. Creatinine Clearance 59 mL/min (70-130); Calcium 6.5 mg/dL (7.8-10.44); Carbon Dioxide 20 mmol/L (23-31); Chloride 115 mmol/L (98-107); Globulin 4.6 g/dL (2.4-3.5); Glucose 90 mg/dL (80-115); Potassium 4.3 mmol/L (3.5-5.1); Protein, Total 6.1 g/dL (6.0-8.3); Sodium 143 mmol/L (136-145)
[2020-05-16 06:19] LABS: Anisocytosis MODERATE=16-30 cells (100X) (0-5/hpf); Band 13 % (5-11); Hemoglobin 8.6 g/dL (12.0-16.0); Lymphocytes 4 % (21-51); MDiff Complete? YES; Mean Corpuscular HGB CONC 31.2 g/dL (32.0-36.0); Mean Corpuscular Hemoglobin 32.2 pg (27.0-31.0); Mean Platelet Volume 10.7 fL (7.4-10.4); Monocytes 5 % (0-10); Neutrophil 78 % (42-75); Platelet Count 95 thou/uL (130-400); Platelet Morphology Comment Appears Decreased; Polychromasia SLIGHT = 2-3 cells (100X) (0-2/hpf); RBC Distribution Width 24.5 % (11.5-14.5); Red Blood Cell (RBC) Count 2.67 mill/uL (4.20-5.40); White Blood Cell (WBC) Count 30.4 thou/uL (4.8-10.8)
[2020-05-16] MEDS: Levothyroxine Sodium 50 MCG TAB PO SCH (06:29)
[2020-05-16] MEDS: Dextrose 50% Abboject 50 ML SYRINGE SLOW IVP PRN ×2 (06:29→15:50)
[2020-05-16] MEDS: Vancomycin 1.5 GRAM/300 ML BAG 1.5 GM in Premix Bag 1 BAG IVPB SCH (07:45)
[2020-05-16] MEDS: Sodium Chloride 0.9% 1,000 ML IV SCH (07:48)
[2020-05-16] MEDS: Midodrine HCl 5 MG TAB PER TUBE SCH ×3 (08:48→20:43)
[2020-05-16] MEDS: Pantoprazole 40 MG VIAL IVP SCH ×2 (08:48→20:43)
[2020-05-16] MEDS: Thiamine 100 MG TAB PER TUBE SCH (08:48)
[2020-05-16] MEDS: Norepinephrine 8 MG/0.9% NS 8 MG in Premix Bag 1 BAG IVPB PRN ×2 (08:57→19:49)
[2020-05-16] MEDS: Piperacillin/Tazobactam 3.375 GM in Sodium Chloride 0.9% 100 ML IVPB SCH ×2 (09:49→21:50)
[2020-05-17] MEDS: Propofol 1,000 MG/100 ML VIAL IV PRN (02:44)
[2020-05-17] MEDS: Sodium Chloride 0.9% 1,000 ML IV SCH ×2 (04:47→10:06)
[2020-05-17] MEDS: Levothyroxine Sodium 50 MCG TAB PO SCH (05:26)
[2020-05-17 05:33] LABS: Vancomycin, Trough 19.9 ug/mL
[2020-05-17 05:36] LABS: ALT (SGPT) 64 U/L (8-55); AST (SGOT) 266 U/L (5-34); Albumin 1.4 g/dL (3.4-4.8); Alkaline Phosphatase 290 U/L (40-110); Anion Gap 12 mmol/L (10-20); BUN (Urea Nitrogen) 45 mg/dL (9.8-20.1); Bilirubin, Total 18.2 mg/dL (0.2-1.2); Calc. Creatinine Clearance 49 mL/min (70-130); Calcium 6.6 mg/dL (7.8-10.44); Carbon Dioxide 20 mmol/L (23-31); Chloride 116 mmol/L (98-107); Globulin 4.9 g/dL (2.4-3.5); Glucose 88 mg/dL (80-115); Potassium 4.1 mmol/L (3.5-5.1); Protein, Total 6.3 g/dL (6.0-8.3); Sodium 144 mmol/L (136-145)
[2020-05-17 05:56] LABS: Hemoglobin 8.6 g/dL (12.0-16.0); Mean Corpuscular HGB CONC 31.5 g/dL (32.0-36.0); Mean Corpuscular Hemoglobin 33.2 pg (27.0-31.0); Mean Platelet Volume 10.1 fL (7.4-10.4); Platelet Count 114 thou/uL (130-400); RBC Distribution Width 25.8 % (11.5-14.5); Red Blood Cell (RBC) Count 2.58 mill/uL (4.20-5.40); White Blood Cell (WBC) Count 28.7 thou/uL (4.8-10.8)
[2020-05-17 06:19] LABS: Anisocytosis MODERATE=16-30 cells (100X) (0-5/hpf); Band 4 % (5-11); Lymphocytes 5 % (21-51); MDiff Complete? YES; Macrocytosis SLIGHT = 6-15 cells (100X) (0-5/hpf); Monocytes 4 % (0-10); Neutrophil 87 % (42-75); Platelet Morphology Comment Appears Decreased; Target Cells MODERATE= 6-15 cells (100X) (0-1/hpf)
[2020-05-17] MEDS: Norepinephrine 8 MG/0.9% NS 8 MG in Premix Bag 1 BAG IVPB PRN ×2 (07:02→18:43)
[2020-05-17] MEDS: Pantoprazole 40 MG VIAL IVP SCH ×2 (08:08→20:43)
[2020-05-17] MEDS: Midodrine HCl 5 MG TAB PER TUBE SCH ×3 (08:08→20:43)
[2020-05-17] MEDS: Thiamine 100 MG TAB PER TUBE SCH (08:08)
[2020-05-17] MEDS: Vancomycin 1.5 GRAM/300 ML BAG 1.5 GM in Premix Bag 1 BAG IVPB SCH (08:10)
[2020-05-17] MEDS ORDERED: DC Sedation Protocol FS ONE (09:07)
[2020-05-17] MEDS: Piperacillin/Tazobactam 3.375 GM in Sodium Chloride 0.9% 100 ML IVPB SCH ×2 (09:38→21:16)
[2020-05-17] MEDS: Dextrose 50% Abboject 50 ML SYRINGE SLOW IVP PRN ×2 (09:50→15:49)
[2020-05-17] MEDS: Albumin 25% 25 GM/100 ML BOT IVPB SCH ×3 (11:28→23:40)
[2020-05-18] MEDS: Sodium Chloride 0.9% 1,000 ML IV SCH (01:13)
[2020-05-18 04:38] LABS: ALT (SGPT) 58 U/L (8-55); AST (SGOT) 231 U/L (5-34); Albumin 2.4 g/dL (3.4-4.8); Alkaline Phosphatase 166 U/L (40-110); Anion Gap 14 mmol/L (10-20); BUN (Urea Nitrogen) 52 mg/dL (9.8-20.1); Calc. Creatinine Clearance 39 mL/min (70-130); Calcium 6.9 mg/dL (7.8-10.44); Carbon Dioxide 19 mmol/L (23-31); Chloride 116 mmol/L (98-107); Globulin 4.1 g/dL (2.4-3.5); Glucose 59 mg/dL (80-115); Potassium 4.2 mmol/L (3.5-5.1); Protein, Total 6.5 g/dL (6.0-8.3); Sodium 145 mmol/L (136-145)
[2020-05-18 04:43] LABS: Bilirubin, Total 27.5 mg/dL (0.2-1.2)
[2020-05-18] MEDS: Dextrose 50% Abboject 50 ML SYRINGE SLOW IVP PRN ×3 (04:43→15:31)
[2020-05-18 05:02] LABS: Anisocytosis SLIGHT = 6-15 cells (100X) (0-5/hpf); Band 12 % (5-11); Eosinophils 1 % (0-10); Hemoglobin 8.1 g/dL (12.0-16.0); Lymphocytes 6 % (21-51); MDiff Complete? YES; Macrocytosis SLIGHT = 6-15 cells (100X) (0-5/hpf); Mean Corpuscular HGB CONC 32.4 g/dL (32.0-36.0); Mean Corpuscular Hemoglobin 34.7 pg (27.0-31.0); Mean Platelet Volume 10.4 fL (7.4-10.4); Monocytes 3 % (0-10); Neutrophil 78 % (42-75); Platelet Count 103 thou/uL (130-400); Platelet Morphology Comment Appears Decreased; Polychromasia SLIGHT = 2-3 cells (100X) (0-2/hpf); RBC Distribution Width 26.2 % (11.5-14.5); Red Blood Cell (RBC) Count 2.34 mill/uL (4.20-5.40); Target Cells SLIGHT = 2-5 cells (100X) (0-1/hpf); Toxic Granulation SLIGHT; White Blood Cell (WBC) Count 25.8 thou/uL (4.8-10.8)
[2020-05-18] MEDS: Levothyroxine Sodium 50 MCG TAB PO SCH (05:03)
[2020-05-18] MEDS: Albumin 25% 25 GM/100 ML BOT IVPB SCH ×2 (05:03→11:32)
[2020-05-18] MEDS ORDERED: Vancomycin HCl 1.25 GM in Sodium Chloride 0.9% 250 ML 250 ML IVPB SCH (06:00)
[2020-05-18] MEDS: Vancomycin 1.5 GRAM/300 ML BAG 1.5 GM in Premix Bag 1 BAG IVPB SCH (07:55)
[2020-05-18] MEDS: Midodrine HCl 5 MG TAB PER TUBE SCH ×3 (08:28→20:30)
[2020-05-18] MEDS: Thiamine 100 MG TAB PER TUBE SCH (08:28)
[2020-05-18] MEDS: Pantoprazole 40 MG VIAL IVP SCH ×2 (08:28→20:30)
[2020-05-18 08:48] LABS: INR-International Normal Ratio 2.8; Prothrombin Time 29.9 sec (12.0-14.7)
[2020-05-18] MEDS: Piperacillin/Tazobactam 3.375 GM in Sodium Chloride 0.9% 100 ML IVPB SCH ×2 (09:37→21:02)
[2020-05-18] MEDS: Norepinephrine 8 MG/0.9% NS 8 MG in Premix Bag 1 BAG IVPB PRN (12:34)
[2020-05-18] MEDS: Sodium Bicarbonate 140 MEQ in Dextrose 5% in Water 1,000 ML IV SCH ×2 (13:11→21:59)
[2020-05-19] MEDS: Scopolamine 1.5 mg/72 hour Patch TOP SCH (02:46)
[2020-05-19] MEDS: Norepinephrine 8 MG/0.9% NS 8 MG in Premix Bag 1 BAG IVPB PRN ×4 (02:47→22:21)
[2020-05-19 05:47] LABS: Hemoglobin 6.8 g/dL (12.0-16.0); Mean Corpuscular HGB CONC 29.7 g/dL (32.0-36.0); Mean Corpuscular Hemoglobin 32.9 pg (27.0-31.0); Mean Platelet Volume 9.9 fL (7.4-10.4); Platelet Count 127 thou/uL (130-400); RBC Distribution Width 27.5 % (11.5-14.5); Red Blood Cell (RBC) Count 2.06 mill/uL (4.20-5.40)
[2020-05-19 05:48] LABS: ALT (SGPT) 66 U/L (8-55); AST (SGOT) 277 U/L (5-34); Albumin 2.5 g/dL (3.4-4.8); Alkaline Phosphatase 154 U/L (40-110); Anion Gap 18 mmol/L (10-20); BUN (Urea Nitrogen) 66 mg/dL (9.8-20.1); Calc. Creatinine Clearance 25 mL/min (70-130); Calcium 7.1 mg/dL (7.8-10.44); Carbon Dioxide 21 mmol/L (23-31); Chloride 113 mmol/L (98-107); Glucose 91 mg/dL (80-115); Potassium 4.5 mmol/L (3.5-5.1); Protein, Total 6.5 g/dL (6.0-8.3); Sodium 147 mmol/L (136-145)
[2020-05-19] MEDS: Levothyroxine Sodium 50 MCG TAB PO SCH (05:55)
[2020-05-19 05:56] LABS: Anisocytosis SLIGHT = 6-15 cells (100X) (0-5/hpf); Band 12 % (5-11); Lymphocytes 7 % (21-51); MDiff Complete? YES; Macrocytosis SLIGHT = 6-15 cells (100X) (0-5/hpf); Monocytes 7 % (0-10); Neutrophil 74 % (42-75); Nucleated RBC 4 % (0); Polychromasia SLIGHT = 2-3 cells (100X) (0-2/hpf); Toxic Granulation SLIGHT; White Blood Cell (WBC) Count 32.8 thou/uL (4.8-10.8)
[2020-05-19 08:32] LABS: Vancomycin, Trough 36.1 ug/mL
[2020-05-19] MEDS ORDERED: Vancomycin 1.5 GRAM/300 ML BAG 1.5 GM in Premix Bag 1 BAG IVPB SCH (09:30)
[2020-05-19] MEDS: Thiamine 100 MG TAB PER TUBE SCH (09:36)
[2020-05-19] MEDS: Pantoprazole 40 MG VIAL IVP SCH ×2 (09:36→21:16)
[2020-05-19] MEDS: Midodrine HCl 5 MG TAB PER TUBE SCH ×3 (09:36→21:15)
[2020-05-19] MEDS: Sodium Chloride 0.45% 1,000 ML IV SCH (09:37)
[2020-05-19] MEDS: Vancomycin 1.5 GRAM/300 ML BAG 1.5 GM in Premix Bag 1 BAG IVPB SCH (09:40)
[2020-05-19] MEDS: Piperacillin/Tazobactam 3.375 GM in Sodium Chloride 0.9% 100 ML IVPB SCH ×2 (11:30→22:12)
[2020-05-19] MEDS: Dextrose 50% Abboject 50 ML SYRINGE SLOW IVP PRN ×2 (17:46→21:47)
[2020-05-19] MEDS: Acetaminophen 325 MG TAB PO PRN (21:15)
[2020-05-19] MEDS: EPINEPHrine 4 MG in Dextrose 5% in Water 250 ML IV SCH (21:59)
[2020-05-20] MEDS: Sodium Chloride 0.45% 1,000 ML IV SCH (01:27)
[2020-05-20] MEDS: Norepinephrine 8 MG/0.9% NS 8 MG in Premix Bag 1 BAG IVPB PRN ×7 (02:30→20:42)
[2020-05-20 05:42] LABS: Bilirubin, Total 31.3 mg/dL (0.2-1.2)
[2020-05-20 05:45] LABS: ALT (SGPT) 75 U/L (8-55); AST (SGOT) 311 U/L (5-34); Albumin 2.3 g/dL (3.4-4.8); Alkaline Phosphatase 122 U/L (40-110); Anion Gap 19 mmol/L (10-20); BUN (Urea Nitrogen) 86 mg/dL (9.8-20.1); Calc. Creatinine Clearance 18 mL/min (70-130); Calcium 6.9 mg/dL (7.8-10.44); Carbon Dioxide 18 mmol/L (23-31); Chloride 111 mmol/L (98-107); Globulin 4.4 g/dL (2.4-3.5); Glucose 73 mg/dL (80-115); Potassium 4.9 mmol/L (3.5-5.1); Protein, Total 6.7 g/dL (6.0-8.3); Sodium 143 mmol/L (136-145)
[2020-05-20] MEDS: Levothyroxine Sodium 50 MCG TAB PO SCH (06:09)
[2020-05-20 06:14] LABS: Anisocytosis SLIGHT = 6-15 cells (100X) (0-5/hpf); Band 19 % (5-11); Basophilic Stippling MODERATE = 3-5 cells (100X) (None Seen); Hemoglobin 7.5 g/dL (12.0-16.0); Lymphocytes 4 % (21-51); MDiff Complete? YES; Mean Corpuscular HGB CONC 30.9 g/dL (32.0-36.0); Mean Corpuscular Hemoglobin 33.7 pg (27.0-31.0); Mean Platelet Volume 10.3 fL (7.4-10.4); Monocytes 2 % (0-10); Neutrophil 75 % (42-75); Platelet Count 121 thou/uL (130-400); Polychromasia SLIGHT = 2-3 cells (100X) (0-2/hpf); RBC Distribution Width 26.8 % (11.5-14.5); Red Blood Cell (RBC) Count 2.23 mill/uL (4.20-5.40); Target Cells SLIGHT = 2-5 cells (100X) (0-1/hpf); White Blood Cell (WBC) Count 28.4 thou/uL (4.8-10.8)
[2020-05-20] MEDS ORDERED: Dextrose 10% in Water 1,000 ML IV SCH (08:00)
[2020-05-20 08:15] VITALS: TEMP 100
[2020-05-20 08:45] LABS: Vancomycin, Random 32.3 ug/mL (See Comment)
[2020-05-20] MEDS ORDERED: Acetaminophen 325 MG TAB PO PRN (09:15)
[2020-05-20] MEDS: Dextrose 10% in Water 1,000 ML IV SCH ×2 (09:22→20:57)
[2020-05-20] MEDS: Thiamine 100 MG TAB PER TUBE SCH (09:23)
[2020-05-20] MEDS: Midodrine HCl 5 MG TAB PER TUBE SCH ×3 (09:23→20:46)
[2020-05-20] MEDS: Pantoprazole 40 MG VIAL IVP SCH ×2 (09:23→20:46)
[2020-05-20] MEDS: Piperacillin/Tazobactam 3.375 GM in Sodium Chloride 0.9% 100 ML IVPB SCH (11:57)
[2020-05-20 14:26] VITALS: BP 100/47
[2020-05-20] MEDS ORDERED: Norepinephrine 8 MG/0.9% NS 250 ML IVPB SCH (23:00)
[2020-05-21] MEDS: EPINEPHrine 4 MG in Dextrose 5% in Water 250 ML IV SCH (00:21)
== END 2020-05-21 01:48 | disposition expired | DRG 870 ==
LOC: ERS 05:18 → ERHOLD 08:02 → CCU 16:00
PROVIDERS: ADMIT Internal Medicine; ATTEND Internal Medicine
PROC: 3E033XZ Introduction of Vasopressor into Peripheral Vein, Percutaneous Approach (ICD-10-PCS; 2020-05-11)
PROC: 06HY33Z Insertion of Infusion Device into Lower Vein, Percutaneous Approach (ICD-10-PCS; 2020-05-11)
PROC: 5A12012 Performance of Cardiac Output, Single, Manual (ICD-10-PCS; 2020-05-11)
PROC: 5A1955Z Respiratory Ventilation, Greater than 96 Consecutive Hours (ICD-10-PCS; principal; 2020-05-19)
PROC: 30233N1 Transfusion of Nonautologous Red Blood Cells into Peripheral Vein, Percutaneous Approach (ICD-10-PCS; 2020-05-19)
PROC: 5A12012 Performance of Cardiac Output, Single, Manual (ICD-10-PCS; 2020-05-20)
DX: A41.9 Sepsis, unspecified organism (principal); J96.01 Acute respiratory failure with hypoxia; I21.4 Non-ST elevation (NSTEMI) myocardial infarction; J96.02 Acute respiratory failure with hypercapnia; I50.33 Acute on chronic diastolic (congestive) heart failure; K76.7 Hepatorenal syndrome; J18.9 Pneumonia, unspecified organism; K72.00 Acute and subacute hepatic failure without coma; N39.0 Urinary tract infection, site not specified; N17.9 Acute kidney failure, unspecified; G93.1 Anoxic brain damage, not elsewhere classified; G93.40 Encephalopathy, unspecified; E46 Unspecified protein-calorie malnutrition; I69.354 Hemiplegia and hemiparesis following cerebral infarction affecting left non-dominant side; Z68.41 Body mass index [BMI] 40.0-44.9, adult; I13.0 Hypertensive heart and chronic kidney disease with heart failure and stage 1 through stage 4 chronic kidney disease, or unspecified chronic kidney disease; I46.9 Cardiac arrest, cause unspecified; Z51.5 Encounter for palliative care; Z66 Do not resuscitate; I46.2 Cardiac arrest due to underlying cardiac condition; I46.8 Cardiac arrest due to other underlying condition; D63.1 Anemia in chronic kidney disease; K70.30 Alcoholic cirrhosis of liver without ascites; K70.10 Alcoholic hepatitis without ascites; D69.59 Other secondary thrombocytopenia; K21.9 Gastro-esophageal reflux disease without esophagitis; F17.210 Nicotine dependence, cigarettes, uncomplicated; F10.10 Alcohol abuse, uncomplicated; E86.9 Volume depletion, unspecified; N18.9 Chronic kidney disease, unspecified; E16.2 Hypoglycemia, unspecified; Z82.3 Family history of stroke; Z78.1 Physical restraint status; Z28.82 Immunization not carried out because of caregiver refusal; Z90.49 Acquired absence of other specified parts of digestive tract; Z79.899 Other long term (current) drug therapy; Z79.82 Long term (current) use of aspirin; Z82.49 Family history of ischemic heart disease and other diseases of the circulatory system; Z20.822 Contact with and (suspected) exposure to COVID-19
CPT/HCPCS: 36415; 36416; 36430; 36556; 36600; 51702; 71045; 80053; 80061; 80202; 81003; 81015; 82140; 82306; 82553; 82607; 82746; 82805; 83036; 83605; 83880; 84439; 84443; 84484; 85025; 85610; 85730; 86850; 86900; 86901; 87040; 87086; 87149; 87635; 92950; 93005; 93306; 94002; 94003; 96365; 96366; 96367; 96368; 96375; C9113; J0171; J0692; J1953; J2060; J2543; J2704; J3010; J3370; J3411; J3480; J3490; J7042; J7050; J7070; P9016; P9047; U0002; U0003